=== PATIENT | male | born 1960 | race Caucasian/White ===

== ENCOUNTER → 2017-01-25 | Outpatient (CLI) | payer BC ==
[2017-01-25 10:55] LABS: Basophils % (A) 1 %; CH 34.2; CHCM 33.8; Eosinophils # (A) 0.3 k/uL (0-0.7); Eosinophils % (A) 4 %; HCT 45.3 % (39.0-53.0); HDW 2.85; HGB 14.8 gm/dL (13.0-17.5); Luc % (Auto) 3; Lymphocytes # (A) 1.3 k/uL (1.0-4.8); Lymphocytes % (A) 22 %; MCH 33.2 pg (25.0-35.0); MCHC 32.7 g/dL (31.0-37.0); MCV 101.7 fL (80.0-100.0); Macrocytosis Slight; Mean Platelet Volume 7.1; Monocytes # (A) 0.4 k/uL (0-1.0); Monocytes % (A) 7 %; Neutrophils # (A) 3.8 k/uL (1.3-7.7); Neutrophils % (A) 63 %; RBC 4.45 m/uL (4.30-5.90); RDW 12.8 % (11.5-15.5); WBC 6.1 k/uL (3.8-10.6); WBC (Perox) 5.85
[2017-01-25 11:02] LABS: ALT 45 U/L (21-72); AST 63 U/L (17-59)
== END | disposition home or self-care (01) ==
LOC: LABWHC1 09:38
PROVIDERS: ATTEND Dermatology Procedural Dermatology
DX: L40.0 Psoriasis vulgaris (principal)
CPT/HCPCS: 36415; 84450; 84460; 85025; 86480

== ENCOUNTER → 2018-02-20 | Outpatient (CLI) | payer BC ==
[2018-02-20 11:55] LABS: Basophils # (A) 0.1 k/uL (0-0.2); Basophils % (A) 1 %; Eosinophils # (A) 0.3 k/uL (0-0.7); Eosinophils % (A) 5 %; HCT 46.9 % (39.0-53.0); HGB 15.9 gm/dL (13.0-17.5); Lymphocytes # (A) 1.3 k/uL (1.0-4.8); Lymphocytes % (A) 27 %; MCH 33.7 pg (25.0-35.0); MCHC 33.9 g/dL (31.0-37.0); MCV 99.2 fL (80.0-100.0); Monocytes # (A) 0.5 k/uL (0-1.0); Monocytes % (A) 10 %; Neutrophils # (A) 2.7 k/uL (1.3-7.7); Neutrophils % (A) 53 %; Platelet Count 152 k/uL (150-450); RBC 4.73 m/uL (4.30-5.90); RDW 12.6 % (11.5-15.5)
== END | disposition home or self-care (01) ==
LOC: LABWHC1 10:12
PROVIDERS: ATTEND Dermatology Procedural Dermatology
DX: L40.0 Psoriasis vulgaris (principal)
CPT/HCPCS: 36415; 82565; 84450; 84460; 85025; 86480

== ENCOUNTER → 2018-06-08 | Outpatient (CLI) | payer BC ==
--- NOTE | 2018-06-08 12:33 | CT ---
EXAMINATION TYPE: CT chest w con DATE OF EXAM: 06/08/2018 COMPARISON: Chest x-ray 10/30/2009 HISTORY: Pneumonia CT DLP: 426 mGycm Automated exposure control for dose reduction was used. CONTRAST: CT scan of the chest is performed with IV Contrast, patient injected with 100 mL of Isovue 300. FINDINGS: LUNGS: There is pleural-based thickening and interlobular septal thickening suggest chronic interstit ial lung disease. Findings are particularly noted involving the lung bases. No consolidative pneumoni a. No pleural effusion or pneumothorax. MEDIASTINUM: There is lymphadenopathy in the mediastinum noted with a couple lordosis measuring patho logic in short axis of 1.1 cm. Findings are nonspecific. Thyroid enhances normally. No axillary or araujo praclavicular adenopathy. Aorta of normal caliber. Coronary artery calcification noted. OTHER: Hypertrophic and degenerative change of the spine noted. IMPRESSION: 1. No evidence of consolidative pneumonia. 2. Cortical findings are compatible with chronic interstitial lung disease correlate for pulmonary fi brosis. 3. Nonspecific borderline adenopathy within the mediastinum or for coronary artery calcification
== END ==
LOC: RADCTMAIN 10:13
PROVIDERS: ATTEND Family Medicine
DX: R91.8 Other nonspecific abnormal finding of lung field (principal)
CPT/HCPCS: 71260; Q9967

== ENCOUNTER 2018-07-04 11:08 | Day surgery (SDC) | payer BC ==
[2018-07-02 13:11] VITALS: BMI 25.0
[~2018-07-04 11:08] MED LIST: ALBUTEROL NEB (CONC) 2.5 MG/0.5 ML INHALATION ONE; LACTATED RINGERS 1,000 ML IV SCH; LIDOCAINE 1% 20 ML VIAL (10MG/ML) FOR IV START INTRADERMA PRN; LIDOCAINE 2% (PF) 20 MG/ML 5 ML VIAL INHALATION ONE; LIDOCAINE VISCOUS 300 MG/15 ML CUP MUCOUS MEM ONE; SODIUM CHLORIDE 0.9% 1,000 ML IV SCH
[2018-07-04 11:29] VITALS: RESP 16; TEMP 97.4
[2018-07-04 11:47] LABS: Glucose,Whole Blood 106 mg/dL (75-99)
[2018-07-04] MEDS ORDERED: PROPOFOL 10 MG/ML 20 ML VIAL IV ONE (12:41)
[2018-07-04] MEDS ORDERED: LIDOCAINE 2% (PF) 20 MG/ML 2 ML VIAL INHALATION ONE (12:53)
[2018-07-04 13:37] VITALS: BP 130/93; PULSE 72
--- NOTE | 2018-07-04 13:45 | PCN ---
PROCEDURE NOTE The operative report is bronchoscopy, transbronchial biopsies of the left lower lobe under fluoroscopy guidance. PREOPERATIVE DIAGNOSIS: Interstitial lung disease. POSTOPERATIVE DIAGNOSIS: Interstitial lung disease. ANESTHESIA USED: IV conscious sedation. PROCEDURE: The patient was prepared according to the bronchoscopy protocol. O2 was applied via nasal cannula. We monitored the patient while in the supine position, his O2 saturation was continuously monitored via pulse oximetry. Blood pressure was intermittently monitored and cardiac rhythm was continuously monitored. After adequate IV conscious sedation, a few milliliters of lidocaine were instilled into the right naris, and the bronchoscope was advanced through the right naris down to the area of the vocal cords, which were noted to be patent. Then the bronchoscope was advanced down through the vocal cords. A thorough examination was done of the trachea, richelle, right upper lobe, right middle lobe, left upper lobe, lingula, and left lower lobe. There was no evidence of any endobronchial tumors. There was no evidence of any purulent secretions. Then using fluoroscopy as guidance, multiple transbronchial biopsies were done from different basilar segments of the left lower lobe. A total of 7 transbronchial biopsies were done from the left lower lobe, and these were sent for different diagnostic studies. Lavage from the left lower lobe was also performed and was sent for different diagnostic studies. Procedure was well tolerated, no evidence of any immediate complications. Chest x-ray was ordered postoperatively and it is pending. MMODL / IJN: [id number] /
--- NOTE | 2018-07-04 13:47 | XR ---
EXAMINATION TYPE: XR chest 1V portable DATE OF EXAM: 07/04/2018 Comparison: 06/29/2018 Clinical History: 57-year-old male Post biopsy LLL Findings: Heart normal size. Focal bibasilar opacities are unchanged. Upper and mid lungs appear relatively andrew ar. Impression: Persistent focal bibasilar opacities suggesting underlying interstitial fibrosis, possible NSIP or ea rly UIP. No appreciable pneumothorax.
--- NOTE | 2018-07-04 13:52 | FL ---
EXAMINATION TYPE: FL bronchoscopy DATE OF EXAM: 07/04/2018 COMPARISON: NONE HISTORY: 57 year-old male left lower lobe biopsy TECHNIQUE: Fluoroscopy. FINDINGS: Fluoroscopic guidance was provided during procedure performed by Dr. Castro. A total of 1 3 seconds of fluoroscopic time was utilized during the procedure and 1 spot images was acquired. IMPRESSION: As Above.
== END 2018-07-04 13:58 | disposition home or self-care (01) ==
LOC: ORWHC2ENDO 11:08
PROVIDERS: ATTEND Internal Medicine
DX: J84.10 Pulmonary fibrosis, unspecified (principal); M10.9 Gout, unspecified; L40.50 Arthropathic psoriasis, unspecified; I10 Essential (primary) hypertension; L40.9 Psoriasis, unspecified; F32.9 Major depressive disorder, single episode, unspecified; K21.9 Gastro-esophageal reflux disease without esophagitis; M19.90 Unspecified osteoarthritis, unspecified site; Z82.49 Family history of ischemic heart disease and other diseases of the circulatory system; Z86.73 Personal history of transient ischemic attack (TIA), and cerebral infarction without residual deficits; Z79.52 Long term (current) use of systemic steroids; Z79.899 Other long term (current) drug therapy
CPT/HCPCS: 94640; 87252; 87070; 87205; 87116; 87102; 87206; 71045; 31628; 31624; J2704; J2001 ×2; 88108; 88305

== ENCOUNTER → 2018-08-02 | Outpatient (CLI) | payer BC ==
[2018-08-02 14:26] LABS: Basophils % (A) 0 %; Eosinophils # (A) 0.1 k/uL (0-0.7); Eosinophils % (A) 1 %; HCT 46.3 % (39.0-53.0); HGB 15.1 gm/dL (13.0-17.5); Lymphocytes # (A) 0.6 k/uL (1.0-4.8); Lymphocytes % (A) 8 %; MCH 31.3 pg (25.0-35.0); MCHC 32.6 g/dL (31.0-37.0); Mean Platelet Volume 6.8; Monocytes # (A) 0.2 k/uL (0-1.0); Monocytes % (A) 2 %; Neutrophils # (A) 6.6 k/uL (1.3-7.7); Neutrophils % (A) 88 %; Platelet Count 154 k/uL (150-450); RBC 4.83 m/uL (4.30-5.90); WBC 7.5 k/uL (3.8-10.6)
[2018-08-02 15:33] LABS: Anion Gap 6 mmol/L; Blood Urea Nitrogen 13 mg/dL (9-20); Carbon Dioxide 32 mmol/L (22-30); Chloride 101 mmol/L (98-107); Potassium 4.9 mmol/L (3.5-5.1); Sodium 139 mmol/L (137-145)
== END ==
LOC: LABPAT 13:59
PROVIDERS: ATTEND Family Medicine
DX: Z01.818 Encounter for other preprocedural examination (principal); Z01.812 Encounter for preprocedural laboratory examination
CPT/HCPCS: 36415; 80051; 82565; 84520; 85025; 93005

== ENCOUNTER 2018-08-09 08:13 | Inpatient (IN) | payer BC, MEDICARE ==
[2018-08-07 12:18] VITALS: BMI 25.5
[~2018-08-09 08:13] MED LIST changes: -ALBUTEROL NEB (CONC) 2.5 MG/0.5 ML INHALATION ONE; +DEXAMETHASONE SOD PHOSPHATE 10 MG/ML 1 ML VIAL IV ONE; +HYDROmorphone 0.5 MG/0.5 ML SYRINGE IVP PRN; -LIDOCAINE 2% (PF) 20 MG/ML 5 ML VIAL INHALATION ONE; -LIDOCAINE VISCOUS 300 MG/15 ML CUP MUCOUS MEM ONE; +ONDANSETRON 4 MG/2 ML VIAL IVP ONE; +SCOPOLAMINE 1.5MG/72HR PATCH TRANSDERM ONE; -SODIUM CHLORIDE 0.9% 1,000 ML IV SCH; +ceFAZolin IN SWFI 2 GM/20 ML SYRINGE IVP ONE
[2018-08-09] MEDS ORDERED: NEOSTIGMINE 1 MG/ML 10 ML VIAL ONE (12:29)
[2018-08-09] MEDS ORDERED: HYDROmorphone (PF) 1 MG/ML ONE (12:29)
[2018-08-09] MEDS ORDERED: GLYCOPYRROLATE 0.2 MG/ML 2 ML VIAL ONE (12:29)
[2018-08-09] MEDS ORDERED: BUPIVACAINE (PF) 0.5% 30 ML VIAL SQ ONE (12:29)
[2018-08-09] MEDS ORDERED: PROPOFOL 10 MG/ML 20 ML VIAL IV ONE (12:29)
[2018-08-09] MEDS ORDERED: LIDOCAINE 1% INJ 10MG/ML (20 ML MDV) ONE (12:29)
[2018-08-09] MEDS ORDERED: MIDAZOLAM 2 MG/2 ML VIAL ONE (12:29)
[2018-08-09] MEDS ORDERED: fentaNYL (PF) 50 MCG/ML 2 ML AMP ONE (12:29)
[2018-08-09] MEDS ORDERED: SUCCINYLCHOLINE CHLORIDE 100 MG/5 ML SYR IV ONE (12:29)
[2018-08-09] MEDS ORDERED: ROCURONIUM BROMIDE 10 MG/ML 10 ML VIAL IV ONE (12:29)
[2018-08-09] MEDS ORDERED: ASPIRIN-ACET-CAFF 250-250-65MG 1 EACH TAB PO PRN (13:50)
[2018-08-09] MEDS ORDERED: BISACODYL 10 MG SUPP RECTAL PRN (13:50)
[2018-08-09] MEDS ORDERED: IPRATROPIUM-ALBUTEROL 3 ML NEB IH PRN (13:50)
[2018-08-09] MEDS ORDERED: ONDANSETRON 4 MG/2 ML VIAL IVP PRN (13:50)
[2018-08-09] MEDS ORDERED: HYDROmorphone 1 MG/ML 1 ML SYRINGE IVP ONE (14:08)
--- NOTE | 2018-08-09 14:12 | XR ---
EXAMINATION TYPE: XR chest 1V DATE OF EXAM: 08/09/2018 COMPARISON: 07/04/2018 HISTORY: Status post VATS. TECHNIQUE: Single frontal view of the chest is obtained. FINDINGS: Mediastinal drain is present. Subcutaneous emphysema is seen along the left chest wall. No pneumothorax is seen. Multifocal atelectasis is present in addition to chronic interstitial prominen ce and suspected background interstitial lung disease. Cardia mediastinal silhouette is within normal limits, upper limits of normal. No new focal consolidation or pleural effusion. IMPRESSION: Status post VATS with multifocal atelectasis, mediastinal drain and subcutaneous emphyse
[2018-08-09] MEDS ORDERED: DEXTROSE 5%-0.45% NACL 1,000 ML IV SCH (15:00)
[2018-08-09] MEDS: KETOROLAC 30 MG/ML 1 ML VIAL IVP SCH ×3 (16:02→23:28)
[2018-08-09] MEDS: HEPARIN SODIUM,PORCINE 5,000 UNIT/ML 1 ML VIAL SQ SCH ×2 (16:04→23:28)
[2018-08-09] MEDS: IPRATROPIUM-ALBUTEROL 3 ML NEB IH SCH ×2 (16:44→21:03)
[2018-08-09 16:48] VITALS: RESP 18
--- NOTE | 2018-08-09 17:07 | P.OP ---
Date of Procedure: 08/09/18 Preoperative Diagnosis: Bilateral pulmonary infiltrate Postoperative Diagnosis: Same with Procedure(s) Performed: Left thoracoscopic biopsy of pulmonary infiltrates Anesthesia: JOAQIUM Surgeon: Leighton Zamorano Filter Press Tender Head #1: Kamaljit Bear Estimated Blood Loss (ml): 20 IV fluids (ml): 1,000 Urine output (ml): 0 Pathology: other (Wedge resections of lingula, lower lobe and upper lobe are sent for pathology and culture including routine, AFB and fungus) Condition: stable Disposition: PACU Indications for Procedure: 57-year-old male with progressive cough and dyspnea. Significant bilateral predominantly lower lobe patchy infiltrates consistent with progressive pulmonary fibrosis. Operative Findings: The lung had some anthracotic change particularly in the lower lobes associated with some fibrosis Description of Procedure: The patient was brought to the operating room, placed supine on the operating table, anesthetized and intubated with a double-lumen endotracheal tube. The airway was small and difficult to visualize and a 35 mm tube was required. Tube was positioned with fiberoptic bronchoscopy and secured. The patient was turned in the right lateral decubitus position. The left chest was sterilely prepped and draped. 3 one-inch incisions were made in the left chest and the video thoracoscope was introduced. Under single lung ventilation the chest was explored with findings as noted above. Generous wedge biopsies of the lingula and basilar portion of the lower lobe were obtained. Another biopsy of the upper lobe from the more superior area was also obtained for comparison. Each biopsy was cut on the back table and a portion sent for culture and the remainder for pathology. A 28-Dutch chest tube was placed through separate stab incision and positioned posterior apically. Secured with 0 Ethibond suture. The lung was inflated under thoracoscopic visualization and the incisions were closed with layers of Vicryl suture. Rib blocks were performed with half percent Marcaine at the level of the incisions. Dry sterile dressings were applied and the patient was transferred to recovery in stable condition extubated.
--- NOTE | 2018-08-09 18:14 | P.CNPUL ---
History of Present Illness Consult date: 08/09/18 Chief complaint: Post thoracoscopic wedge biopsy of the lung History of present illness: This is a 57-year-old male patient with obvious interstitial lung disease/pulmonary fibrosis and the patient was brought into the operating room to undergo a left thoracoscopic biopsy of the lung. The patient had a wedge resection of the lingula and lower lobe and upper lobe and the wedge resections were sent to pathology evaluation addition to microbial cultures. Note that the patient was having some exertional dyspnea preoperatively related to his interstitial lung disease and he has been followed up in our office. Currently the chest x-ray showing adequate expansion of both lungs. There is a left-sided chest tube in place. Output has been around 90 mL of bloody drainage since the patient came from the operating room and there is no evidence of any air leak. Pain is under good control. The patient is hemodynamically stable and is awake and alert and there has been no other significant events since his arrival from the operating room. Note that the patient has history of psoriasis and psoriatic arthritis and he has been maintained on Enbrel injection outpatient basis. His arthritis has been under good control. Review of Systems Constitutional: Denies chills, Denies fever Eyes: denies as per HPI, denies blurred vision, denies bulging eye, denies decreased vision, denies diplopia, denies discharge, denies dry eye, denies irritation, denies itching, denies pain, denies photophobia, denies loss of peripheral vision, denies loss of vision, denies tunnel vision/blind spots Ears: deny: decreased hearing, ear discharge, earache, tinnitus Ears, nose, mouth and throat: Denies headache, Denies sore throat Breasts: absent: as per HPI, gynecomastia Cardiovascular: Reports decreased exercise tolerance, Reports dyspnea on exertion Respiratory: Reports dyspnea Gastrointestinal: Denies abdominal pain, Denies diarrhea, Denies nausea, Denies vomiting Genitourinary: Reports as per HPI Musculoskeletal: absent: ankle pain, ankle stiffness, ankle swelling, as per HPI, elbow pain, elbow stiffness, elbow swelling, foot pain, foot stiffness, foot swelling, hand pain, hand stiffness, hand swelling, hip pain, hip stiffness, hip swelling, knee pain, knee stiffness, knee swelling, shoulder pain, shoulder stiffness, shoulder swelling, wrist pain, wrist stiffness, wrist swelling Integumentary: Denies pruritus, Denies rash Neurological: Reports as per HPI Psychiatric: Reports as per HPI Endocrine: Reports as per HPI Hematologic/Lymphatic: Reports as per HPI Allergic/Immunologic: Reports as per HPI Past Medical History Past Medical History: CVA/TIA, Eye Disorder, GERD/Reflux, Hypertension, Osteoarthritis (OA), Respiratory Disorder, Skin Disorder Additional Past Medical History / Comment(s): Interstitial lung disease/pulmonary fibrosis, psoriasis, psoriatic arthritis, gout, glaucoma, history of TIA, hypertension, acid reflux, osteoarthritis History of Any Multi-Drug Resistant Organisms: None Reported Past Surgical History: Hernia Repair Additional Past Surgical History / Comment(s): RT HAND TENDON SURG. UMB HERNIA. COLONOSCOPY, EGD, bronchoscopy end of June 2018 , vasectomy Past Anesthesia/Blood Transfusion Reactions: No Reported Reaction Past Psychological History: No Psychological Hx Reported Smoking Status: Never smoker Past Alcohol Use History: Occasional Past Drug Use History: None Reported - Past Family History Father Family Medical History: Cancer, Myocardial Infarction ([place]) Medications and Allergies Home Medications Medication Instructions Recorded Confirmed Type Albuterol Inhaler [Ventolin Hfa 1 - 2 puff INHALATION RT-Q6H PRN 07/02/18 08/09/18 History Inhaler] Allopurinol [Zyloprim] 300 mg PO DAILY 07/02/18 08/09/18 History Aspirin/Acetaminophen/Caffeine 1 tab PO Q6H PRN 07/02/18 08/09/18 History [Excedrin Extra Strength Caplet] Losartan [Cozaar] 25 mg PO DAILY 07/02/18 08/09/18 History Pantoprazole Sodium [Protonix] 40 mg PO DAILY 07/02/18 08/09/18 History Travoprost [Travatan Z 0.004%] 2 drop LEFT EYE HS 07/02/18 08/09/18 History Allergies Allergy/AdvReac Type Severity Reaction Status Date / Time No Known Allergies Allergy Verified 08/09/18 15:20 Physical Exam Vitals: Vital Signs Temp Pulse Pulse Resp BP BP Pulse Ox 08/09/18 16:54 114 H 18 08/09/18 16:44 111 H 18 98 08/09/18 15:40 98.2 F 114 H 20 132/77 08/09/18 15:15 101 H 16 118/71 95 08/09/18 14:38 97 16 99/60 93 L 08/09/18 14:15 92 16 110/56 97 08/09/18 13:45 91 14 121/64 95 08/09/18 13:37 97.4 F L 111 H 16 144/78 100 08/09/18 08:39 97.6 F 83 16 156/63 98 Intake and Output 08/09/18 08/09/18 08/09/18 06:59 14:59 22:59 Intake Total 1230 120 Output Total 20 145 Balance 1210 -25 Intake: IV 1000 Intake, IV Titration 80 Amount Dextrose 5%-0.45% NaCl 1, 80 000 ml @ 40 mls/hr IV . Q24H [facility] Rx#:[id number] Oral 150 120 Output: Chest Tube Drainage 80 Chest Tube Left Lateral 80 Chest Estimated Blood Loss 20 65 The patient appeared well nourished and normally developed. Vital signs as documented. Head exam is unremarkable. No scleral icterus or corneal arcus noted. Neck is without jugular venous distension, thyromegaly, or carotid bruits. Carotid upstrokes are brisk bilaterally. Lungs few coarse crackles in lung bases bilaterally and the patient is Velcro crackles in the lung bases. The patient has a left-sided chest tube in place. Output is minimal at this point in time and there is no evidence of air leak.. Cardiac exam reveals the PMI to be normally sized and situated. Rhythm is regular. First and second heart sounds normal. No murmurs, rubs or gallops. Abdominal exam reveals normal bowel sounds, no masses, no organomegaly and no aortic enlargement. Extremities are nonedematous and both femoral and pedal pulses are normal.Examination of the skin revealed no evidence of significant rashes, suspicious appearing nevi or other concerning lesions. Neurologically the patient is awake and alert and is no focal neurological deficits. Results - Diagnostic Findings Chest x-ray: image reviewed Assessment and Plan Plan: Assessment 1 interstitial lung disease with the high concern and suspicion for IPF and the patient underwent a thoracoscopic wedge biopsy of the left lung and the patient is postop day #0 2 post surgical left-sided chest tube in place without evidence of air leak and output is minimal at this point in time 3 chronic exertional dyspnea secondary to above 4 psoriasis 5 psoriatic arthritis and the patient is demented on Enbrel injection an outpatient basis 6 hypertension 7 osteoarthritis 8 acid reflux 9 chronic cough Plan Provide the patient incentive spirometer. Monitor the output from the chest tube. Repeat chest x-ray in the morning. Provide adequate pain control. Continue DuoNeb nebulized treatments around the clock. IV As an [employer] Antibiotic Coverage. Heparin Subcu for DVT Prophylaxis. Hold Enbrel for Now. Resume the Eyedrops. We'll Continue to Follow and Make Further Recommendations Based on His Overall Progress.
[2018-08-09] MEDS ORDERED: LATANOPROST 0.005% OPHTH DROPS 2.5 ML BTL LEFT EYE SCH (21:00)
[2018-08-09] MEDS: ceFAZolin IN SWFI 2 GM/20 ML SYRINGE IVP SCH (21:03)
[2018-08-10] MEDS: ceFAZolin IN SWFI 2 GM/20 ML SYRINGE IVP SCH (05:12)
[2018-08-10] MEDS: KETOROLAC 30 MG/ML 1 ML VIAL IVP SCH ×2 (05:13→12:28)
--- NOTE | 2018-08-10 07:12 | XR ---
EXAMINATION TYPE: XR chest 1V DATE OF EXAM: 08/10/2018 HISTORY: Postoperative left VATS with lung biopsy COMPARISON: August 09, 2018 TECHNIQUE: Single view of the chest is submitted. FINDINGS: Demonstrated are scattered senescent parenchymal change. Basilar atelectasis and/or infiltrates persist. Small effusions are suspected. No evidence for pneumo thorax. Left-sided chest tube is in place. The heart is stable. Hilar and mediastinal structures are within normal limits. Degenerative changes are seen of the dorsal spine. IMPRESSION: 1. Basilar atelectasis and/or infiltrates persist. Small effusions are suspected. No evidence for pn eumothorax. Left-sided chest tube is in place.
[2018-08-10] MEDS ORDERED: PANTOPRAZOLE 40 MG TABLET PO SCH (07:30)
[2018-08-10] MEDS: IPRATROPIUM-ALBUTEROL 3 ML NEB IH SCH ×2 (07:42→11:20)
[2018-08-10 07:51] LABS: Basophils % (A) 0 %; Eosinophils # (A) 0.1 k/uL (0-0.7); Eosinophils % (A) 2 %; HCT 37.2 % (39.0-53.0); HGB 12.6 gm/dL (13.0-17.5); Lymphocytes % (A) 15 %; MCH 32.4 pg (25.0-35.0); MCHC 33.8 g/dL (31.0-37.0); MCV 95.8 fL (80.0-100.0); Mean Platelet Volume 7.6; Monocytes # (A) 0.4 k/uL (0-1.0); Monocytes % (A) 6 %; Neutrophils % (A) 76 %; Platelet Count 135 k/uL (150-450); RBC 3.88 m/uL (4.30-5.90); RDW 15.1 % (11.5-15.5); WBC 6.6 k/uL (3.8-10.6)
[2018-08-10 07:52] LABS: Anion Gap 3 mmol/L; Blood Urea Nitrogen 10 mg/dL (9-20); Calcium 8.6 mg/dL (8.4-10.2); Carbon Dioxide 31 mmol/L (22-30); Chloride 101 mmol/L (98-107); Glucose 110 mg/dL (74-99); Potassium 4.2 mmol/L (3.5-5.1); Sodium 135 mmol/L (137-145)
[2018-08-10] MEDS: HEPARIN SODIUM,PORCINE 5,000 UNIT/ML 1 ML VIAL SQ SCH (08:43)
[2018-08-10] MEDS ORDERED: ALLOPURINOL 300 MG TAB PO SCH (09:00)
[2018-08-10] MEDS ORDERED: LOSARTAN 25 MG TAB PO SCH (09:00)
--- NOTE | 2018-08-10 12:54 | XR ---
EXAMINATION TYPE: XR chest 2V DATE OF EXAM: 08/10/2018 COMPARISON: 08/10/2018 HISTORY: Chest tube removal TECHNIQUE: Frontal and lateral views of the chest are obtained. FINDINGS: Scattered senescent parenchymal changes noted. Hyperinflation compatible with COPD. Left-sided chest tube has been removed with small left apical pneumothorax estimated at less than 10% and measuring 1 cm. Left basilar pleural-parenchymal opacity persists. Heart size is stable. Mediastinal structures are stable and grossly unremarkable. No evidence for hilar prominence. Degenerative changes dorsal spine. IMPRESSION: 1. Left-sided chest tube has been removed with small left apical pneumothorax estimated at less than 10% and measuring 1 cm.
[2018-08-10 14:04] VITALS: BP 132/73; PULSE 111; TEMP 98.4
--- NOTE | 2018-08-10 17:12 | P.PN ---
Subjective Progress Note Date: 08/10/18 Principal diagnosis: Post thoracoscopic wedge lung biopsy This is a 57-year-old male patient with obvious interstitial lung disease/pulmonary fibrosis and the patient was brought into the operating room to undergo a left thoracoscopic biopsy of the lung. The patient had a wedge resection of the lingula and lower lobe and upper lobe and the wedge resections were sent to pathology evaluation addition to microbial cultures. Note that the patient was having some exertional dyspnea preoperatively related to his interstitial lung disease and he has been followed up in our office. Currently the chest x-ray showing adequate expansion of both lungs. There is a left-sided chest tube in place. Output has been around 90 mL of bloody drainage since the patient came from the operating room and there is no evidence of any air leak. Pain is under good control. The patient is hemodynamically stable and is awake and alert and there has been no other significant events since his arrival from the operating room. Note that the patient has history of psoriasis and psoriatic arthritis and he has been maintained on Enbrel injection outpatient basis. His arthritis has been under good control. The patient is seen today 08/10/2018 in follow-up on the selective care unit. He is awake and alert in no acute distress. He is maintaining good O2 saturations in the 90s on room air. He's been afebrile. Hemodynamically stable. He is working well with the incentive spirometer. His pain is well controlled. Chest tube was removed. Follow-up chest x-ray reviewed. He is planning to be discharged home today. Cultures and pathology are pending. White count 6.6. Hemoglobin 12.6. Creatinine 0.69. Objective - Vital Signs Vital signs: Vital Signs Temp 98.4 F 08/10/18 12:05 Pulse 111 H 08/10/18 12:05 Resp 18 08/10/18 12:05 BP 132/73 08/10/18 12:05 Pulse Ox 94 L 08/10/18 12:05 Intake & Output 08/09/18 08/10/18 08/10/18 18:59 06:59 18:59 Intake Total 1950 720 Output Total 765 380 Balance 1185 -380 720 Weight 76.1 kg Intake: IV 1000 Intake, IV Titration 80 Amount Dextrose 5%-0.45% NaCl 1, 80 000 ml @ 40 mls/hr IV . Q24H [facility] Rx#:[id number] Oral 870 130 Output: Chest Tube Drainage 80 80 Chest Tube Left Lateral 80 80 Chest Urine 600 300 Estimated Blood Loss 85 Other: # Voids 1 - Exam The patient appeared well nourished and normally developed. Vital signs as documented. Head exam is unremarkable. No scleral icterus or corneal arcus noted. Neck is without jugular venous distension, thyromegaly, or carotid bruits. Carotid upstrokes are brisk bilaterally. Lungs few coarse crackles in lung bases bilaterally and the patient is Velcro crackles in the lung bases. Chest tube has been removed. Output is minimal at this point in time and there is no evidence of air leak. Cardiac exam reveals the PMI to be normally sized and situated. Rhythm is regular. First and second heart sounds normal. No murmurs, rubs or gallops. Abdominal exam reveals normal bowel sounds, no masses, no organomegaly and no aortic enlargement. Extremities are nonedematous and both femoral and pedal pulses are normal.Examination of the skin revealed no evidence of significant rashes, suspicious appearing nevi or other concerning lesions. Neurologically the patient is awake and alert and is no focal neurological deficits. - Labs CBC & Chem 7: 08/10/18 06:41 08/10/18 06:41 Labs: Abnormal Lab Results - Last 24 Hours (Table) 08/10/18 08/10/18 Range/Units 06:41 06:41 RBC 3.88 L (4.30-5.90) m/uL Hgb 12.6 L (13.0-17.5) gm/dL Hct 37.2 L (39.0-53.0) % Plt Count 135 L (150-450) k/uL Sodium 135 L (137-145) mmol/L Carbon Dioxide 31 H (22-30) mmol/L Glucose 110 H (74-99) mg/dL Microbiology - Last 24 Hours (Table) 08/09/18 13:21 Gram Stain - Preliminary Lung - Left Lower Lobe Tissue Culture - Preliminary 08/09/18 13:21 Gram Stain - Preliminary Lung - Left Upper Lobe Tissue Culture - Preliminary 08/09/18 13:21 Gram Stain - Preliminary Lung - Left Upper Lobe Tissue Culture - Preliminary 08/09/18 13:21 Acid Fast Bacilli Smear - Final Lung - Left Upper Lobe Acid Fast Bacilli Culture - Preliminary 08/09/18 13:21 Acid Fast Bacilli Smear - Final Lung - Left Lower Lobe Acid Fast Bacilli Culture - Preliminary 08/09/18 13:21 Acid Fast Bacilli Smear - Final Lung - Left Upper Lobe Acid Fast Bacilli Culture - Preliminary 08/09/18 13:21 Anaerobic Culture - Preliminary Lung - Left Lower Lobe 08/09/18 13:21 Fungal Culture - Preliminary Lung - Left Upper Lobe 08/09/18 13:21 Anaerobic Culture - Preliminary Lung - Left Upper Lobe 08/09/18 13:21 Fungal Culture - Preliminary Lung - Left Lower Lobe 08/09/18 13:21 Anaerobic Culture - Preliminary Lung - Left Upper Lobe 08/09/18 13:21 Fungal Culture - Preliminary Lung - Left Upper Lobe Assessment and Plan Assessment: Assessment 1 interstitial lung disease with the high concern and suspicion for IPF and the patient underwent a thoracoscopic wedge biopsy of the left lung and the patient is postop day #1 2 post surgical left-sided chest tube in place without evidence of air leak and output is minimal at this point in time 3 chronic exertional dyspnea secondary to above 4 psoriasis 5 psoriatic arthritis and the patient is demented on Enbrel injection an outpatient basis 6 hypertension 7 osteoarthritis 8 acid reflux 9 chronic cough Plan The patient was seen and evaluated by Dr. Johansen. Chest x-rays were reviewed. He is cleared for discharge from the pulmonary standpoint. He'll follow up with Dr. Castro in our office. He is encouraged to call sooner with any questions or concerns. I, the cosigning physician, performed a history & physical examination of the patient. Lungs sounds with coarse crackles in the bilateral bases. Maintaining good O2 saturations in the 90s on room air. I discussed the assessment and plan of care with my nurse practitioner, Brenda Arroyo. I attest to the above note as di ctated by her.
--- NOTE | 2018-08-11 14:04 | P.DS ---
Providers Date of admission: 08/09/18 08:13 Expected date of discharge: 08/10/18 Attending physician: Leighton Zamorano Consults: 08/09/18 13:50 Consult Physician Routine Consulting Provider: Lorna Castro Reason/Comments: Pulmonary Management Do you want consulting provider notified?: Yes Primary care physician: [facility] Course: FINAL DIAGNOSIS: 1. Bilateral pulmonary infiltrates 2. Psoriasis and psoriatic arthritis, suspected rheumatoid arthritis, on Enbrel for several years 3. Hypertension 4. CVA 5. CAD 6. Daily EtOH 7. Family history of premature coronary artery disease and cancer PRINCIPAL PROCEDURE: 1. Left thoracoscopic biopsy of pulmonary infiltrates HISTORY OF PRESENT ILLNESS: This is a 57-year-old active gentleman who follows with Dr. Chente Moore on an outpatient basis. Over the previous 6 months he noticed increasing shortness of breath and a dry hacking cough without any fever, chills, hemoptysis, or chest pain. His primary care physician was concerned that the symptoms were due to his Enbrel and it was discontinued. Unfortunately this caused his psoriasis to flareup and really did not improve h is pulmonary symptomatology. He was referred to Dr. Castro who did a diagnostic computed tomography scan which demonstrated evidence of bilateral pulmonary fibrosis and groundglass infiltrates, worse in the lower lobes than the upper lobes and more pronounced on the left than the right. Diagnostic bronchoscopy was performed which was nondiagnostic. The patient was referred to Dr. Zamorano from cardiothoracic surgery. He was recommended to undergo thoracoscopic lung biopsy. The usual perioperative course was discussed in detail with the patient and his family, all risks and benefits were explained, all questions were answered, and consent was obtained to proceed with surgery. The patient was scheduled at the earliest possible surgical date. HOSPITAL COURSE: The patient was brought to the hospital on 08/09/2018, taken to the preoperative area, prepared in the usual fashion, and subsequently taken to the operating room where Dr. Zamorano performed a left thoracoscopic biopsy of pulmonary infiltrates. Upon completion of surgery the patient was extubated and taken to the recovery room for continued monitoring. Eventually he was admitted to [address] [place] [address] cardiac step-down unit, there was no air leak in his chest tube and it was to placed to water-seal the night of surgery. Follow-up chest x-ray the next morning was stable, the patient continued to have no air leak, and his left pleural chest tube was discontinued on postop day #1. His oxygen was titrated down, he was tolerating oral diet, his pain was controlled, and he was ready to be discharged to home on postoperative day #1. He received written and verbal instruction regarding his medications, activity restrictions, signs and symptoms requiring physician notification, and follow-up appointments. COMPLICATIONS: The patient experienced no postoperative complications. Patient Condition at Discharge: Stable Plan - Discharge Summary Discharge Rx Participant: Yes New Discharge Prescriptions: Continue Albuterol Inhaler [Ventolin Hfa Inhaler] 1 - 2 puff INHALATION RT-Q6H PRN PRN Reason: Shortness Of Breath Travoprost [Travatan Z 0.004%] 2 drop LEFT EYE HS Pantoprazole Sodium [Protonix] 40 mg PO DAILY Losartan [Cozaar] 25 mg PO DAILY Allopurinol [Zyloprim] 300 mg PO DAILY Aspirin/Acetaminophen/Caffeine [Excedrin Extra Strength Caplet] 1 tab PO Q6H PRN PRN Reason: Pain Discharge Medication List Albuterol Inhaler [Ventolin Hfa Inhaler] 1 - 2 puff INHALATION RT-Q6H PRN 07/02/18 [History] Allopurinol [Zyloprim] 300 mg PO DAILY 07/02/18 [History] Aspirin/Acetaminophen/Caffeine [Excedrin Extra Strength Caplet] 1 tab PO Q6H PRN 07/02/18 [History] Losartan [Cozaar] 25 mg PO DAILY 07/02/18 [History] Pantoprazole Sodium [Protonix] 40 mg PO DAILY 07/02/18 [History] Travoprost [Travatan Z 0.004%] 2 drop LEFT EYE HS 07/02/18 [History] Follow up Appointment(s)/Referral(s): Brenda Arroyo NPC [Nurse Practitioner] - 08/22/18 3:30 pm Leighton Zamorano MD [STAFF PHYSICIAN] - 08/30/18 1:45 pm Patient Instructions/Handouts: Video Assisted Thoracoscopic Surgery (DC) Activity/Diet/Wound Care/Special Instructions: DISCHARGE INSTRUCTIONS: 1. No driving for 2 weeks, or until physician gives their ok. 2. No lifting, pushing, or pulling more than 10 pounds for 2 weeks. The physician will advise of any restriction changes. 3. Continue pain control per as needed orders. Alternate acetaminophen (Tylenol) and ibuprofen (Motrin/Advil) for pain. 4. Continue with incentive spirometry and splinting until otherwise directed by the physician. 5. Leave chest tube dressing for 48 hours. After that, remove all dressings and shower daily. 6. Routine incision care. No powders, lotions, ointments on incisions. 7. Please call surgeon/EXTERNAL RELATIONS MANAGER for temp greater than 101 F or purulent drainage from incisions. Letitia Barragan NP Discharge Disposition: HOME SELF-CARE
--- NOTE | 2018-08-13 13:20 | CDI ---
Documentation Clarification Form Date: 08/13/2018 From: Tessa Espinosa Phone: If questions call Margie Spencer @ [phone], Hours-8:30 am & 5 pm M- [place] Admit Date: 08/09/2018 8:13:00 AM Patient Name: Chente Morin Visit Number: [id number] Discharge Date: 08/10/2018 3:07:00 PM ATTENTION: The Clinical Documentation Specialists (CDI) and [facility] Coding Staff appreciate your assistance in clarifying documentation. Please respond to the clarification below the line at the bottom and electronically sign. The CDI & [facility] Coding staff will review the response and follow-up if needed. Please note: Queries are made part of the Legal Health Record. If you have any questions, please contact the author of this message via ITS. Dr. Leighton Zamorano The final diagnosis of the pathology report states: interstitial lung disease, interstitial pneumonia and concerning for usual interstitial pneumonia. Treatment: Albuterol inhaler In your professional opinion, do you agree with the pathology report specifying interstitial lung disease, interstitial pneumonia and concerning for usual interstitial pneumonia ? Yes No Other (please specify) Unable to determine yes MTDD
== END 2018-08-10 15:07 | disposition home or self-care (01) | DRG 168 ==
LOC: 2ORMAIN 08:13 → 3SCARD 14:55
PROVIDERS: ADMIT Thoracic Surgery (Cardiothoracic Vascular Surgery); ATTEND Thoracic Surgery (Cardiothoracic Vascular Surgery)
PROC: 0BBG4ZX Excision of Left Upper Lung Lobe, Percutaneous Endoscopic Approach, Diagnostic (ICD-10-PCS; 2018-08-09)
PROC: 0BBH4ZX Excision of Lung Lingula, Percutaneous Endoscopic Approach, Diagnostic (ICD-10-PCS; 2018-08-09)
PROC: 0BBJ4ZX Excision of Left Lower Lung Lobe, Percutaneous Endoscopic Approach, Diagnostic (ICD-10-PCS; principal; 2018-08-09 10:00)
DX: J84.112 Idiopathic pulmonary fibrosis (principal); L40.50 Arthropathic psoriasis, unspecified; M06.9 Rheumatoid arthritis, unspecified; I10 Essential (primary) hypertension; I25.10 Atherosclerotic heart disease of native coronary artery without angina pectoris; M19.90 Unspecified osteoarthritis, unspecified site; K21.9 Gastro-esophageal reflux disease without esophagitis; M10.9 Gout, unspecified; H40.9 Unspecified glaucoma; Z79.82 Long term (current) use of aspirin; Z79.899 Other long term (current) drug therapy; Z86.73 Personal history of transient ischemic attack (TIA), and cerebral infarction without residual deficits; Z82.49 Family history of ischemic heart disease and other diseases of the circulatory system; Z80.9 Family history of malignant neoplasm, unspecified
CPT/HCPCS: 71045; 71046; 80048; 85025; 87070; 87075; 87102; 87116; 87205; 87206; 88307; 94640; 94760

== ENCOUNTER → 2019-02-07 | Outpatient (CLI) | payer BC, MEDICARE | END | disposition home or self-care (01) | LOC: CPPFTMAIN 08:07 | PROVIDERS: ATTEND Internal Medicine | DX: I99.8 Other disorder of circulatory system (principal) | CPT/HCPCS: 94060; 94726; 94729 ==

== ENCOUNTER → 2020-09-14 | Outpatient (CLI) | payer BC ==
--- NOTE | 2020-09-15 10:01 | ECHOF ---
Referral Reason:R01.1 murmur MEASUREMENTS -------- HEIGHT: 172.7 cm WEIGHT: 83.9 kg BP: IVSd: 1.3 cm (0.6 - 1.1) LVIDd: 3.9 cm (3.9 - 5.3) LVPWd: 1.4 cm (0.6 - 1.1) IVSs: 1.6 cm LVIDs: 3.7 cm LVPWs: 1.0 cm LAESV Index (A-L): 23.01 ml/m Ao Diam: 4.5 cm (2.0 - 3.7) AV Cusp: 1.0 cm (1.5 - 2.6) MV EXCURSION: 16.312 mm (> 18.000) MV EF SLOPE: 86 mm/s (70 - 150) EPSS: 0.4 cm MV E Bandar: 0.57 m/s MV DecT: 270 ms MV A Bandar: 0.88 m/s MV E/A Ratio: 0.65 AV maxP.15 mmHg AV meanP.83 mmHg FINDINGS -------- Sinus rhythm. This was a technically good study. There is mild concentric left ventricular hypertrophy. Overall left ventricular systolic function i s low-normal with, an EF between 50 - 55 %. Left ventricular systolic function is hyperdynamic with an estimated EF of >70%. The right ventricle is normal in size. The right atrial size is normal. There is moderate aortic stenosis present. Peak/mean gradient across the Aortic Valve is 37.15mmHg / 18.83mmHg. Aortic valve is functionally bicuspid and is mildly thickened. Mild mitral annular calcification present. Mild mitral regurgitation is present. Mild tricuspid regurgitation present. Right ventricular systolic pressure is normal at < 35 mmHg. There is no pulmonic regurgitation present. Aortic Root is dilated and measures 4.5cm. There is no pericardial effusion. CONCLUSIONS -------- 1. There is mild concentric left ventricular hypertrophy. 2. Left ventricular systolic function is hyperdynamic with an estimated EF of >70%. 3. The right ventricle is normal in size. 4. The right atrial size is normal. 5. There is moderate aortic stenosis present. 6. Peak/mean gradient across the Aortic Valve is 37.15mmHg / 18.83mmHg. 7. Aortic valve is functionally bicuspid and is mildly thickened. 8. Mild mitral annular calcification present. 9. Mild mitral regurgitation is present. 10. Mild tricuspid regurgitation present. 11. There is no pulmonic regurgitation present. 12. Aortic Root is dilated and measures 4.5cm. 13. There is no pericardial effusion. SERVICE VEHICLE OPERATOR: Elizabeth Valero RDCS
== END | disposition home or self-care (01) ==
LOC: RADECHMAIN 11:54
PROVIDERS: ATTEND Family Medicine
DX: I08.1 Rheumatic disorders of both mitral and tricuspid valves (principal)
CPT/HCPCS: 93306

== ENCOUNTER → 2021-11-23 | Outpatient (CLI) | payer MEDICARE ==
--- NOTE | 2021-11-24 10:28 | CA ---
Transthoracic Echo Report Name: Chente Morin Age: 60 Gender: M : 1960 Exam Date: 11/23/2021 14:28 Exam Location: [facility] Ht (in): 68 Wt (lb): 185 Ordering Physician: Kvng Jefferson MD Attending/Referring Phys: Chelsea De Guzman [facility] Supervisor Rice Milling Letitia Fuchs RDCS Procedure CPT: Indications: i35.0 Cardiac Hx: Hx of Aortic Stenosis Technical Quality: Good Contrast 1: Total Dose (mL): Contrast 2: Total Dose (mL): MEASUREMENTS (Male / Female) Normal Values 2D ECHO LV Diastolic Diameter PLAX 4.2 cm 4.2 - 5.9 / 3.9 - 5.3 cm LV Systolic Diameter PLAX 1.9 cm IVS Diastolic Thickness 1.0 cm 0.6 - 1.0 / 0.6 - 0.9 cm LVPW Diastolic Thickness 1.3 cm 0.6 - 1.0 / 0.6 - 0.9 cm LV Relative Wall Thickness 0.6 LVOT Diameter 1.8 cm LA Volume 53.8 cm??? 18 - 58 / 22 - 52 cm??? M-MODE Aortic Root Diameter MM 4.2 cm LA Systolic Diameter MM 2.9 cm LA Ao Ratio MM 0.7 MV E Point Septal Separation 1.2 cm AV Cusp Separation MM 0.8 cm DOPPLER AV Peak Velocity 352.7 cm/s AV Peak Gradient 49.8 mmHg AV Mean Velocity 221.3 cm/s AV Mean Gradient 23.9 mmHg AV Velocity Time Integral 68.4 cm LVOT Peak Velocity 100.2 cm/s LVOT Peak Gradient 4.0 mmHg AV Area Cont Eq pk 0.7 cm??? MV Area PHT 4.6 cm??? MR Peak Velocity 420.2 cm/s MR Peak Gradient 70.6 mmHg Mitral E Point Velocity 122.5 cm/s Mitral A Point Velocity 99.3 cm/s Mitral E to A Ratio 1.2 MV Deceleration Time 164.5 ms MV E' Velocity 7.6 cm/s Mitral E to MV E' Ratio 16.0 PV Peak Velocity 175.8 cm/s PV Peak Gradient 12.4 mmHg FINDINGS Left Ventricle Left ventricular ejection fraction is estimated at 55-60 %. Left ventricular cavity size normal. Left ventricular wall thickness normal. Grade 1 diastolic dysfunction. Right Ventricle The right ventricle is normal in size and function. Right Atrium The right atrium is normal in size. Left Atrium The left atrium is normal in size. Mitral Valve Structurally normal mitral valve without significant stenosis or prolapse. There is moderate mitral regurgitation. Aortic Valve Bicuspid aortic valve. Moderate aortic stenosis with a peak gradient of 52 mmHg and a mean gradient of 24 mmHg. Tricuspid Valve Structurally normal tricuspid valve without significant stenosis. Pulmonary artery systolic pressure is normal. Mild tricuspid regurgitation. Pulmonic Valve Structurally normal pulmonic valve without significant stenosis. There is no pulmonic regurgitation. Pericardium Normal pericardium without effusion. Aorta Dialated Aortic valve measuring 4.2 cm. CONCLUSIONS Normal left ventricular dimension and systolic function Moderate aortic stenosis Moderate mitral regurgitation Previewed by: Dr. Patrick Garcia MD (Electronically Signed) Final Date: 24 November 2021 10:27
== END | disposition home or self-care (01) ==
LOC: RADECHMAIN 14:17
PROVIDERS: ATTEND Family Medicine
DX: I35.0 Nonrheumatic aortic (valve) stenosis (principal)
CPT/HCPCS: 93306

== ENCOUNTER 2022-02-25 11:48 | Day surgery (SDC) | payer MEDICARE ==
[2022-02-23 12:48] VITALS: BMI 28.8
[2022-02-25 13:28] VITALS: TEMP 97
[2022-02-25] MEDS: LACTATED RINGERS 1,000 ML IV SCH ×2 (13:35→13:57)
[2022-02-25] MEDS ORDERED: PROPOFOL 10 MG/ML 20 ML VIAL IV ONE (13:58)
--- NOTE | 2022-02-25 14:17 | P.PCN ---
Date of Procedure: 02/25/22 Procedure(s) Performed: BRIEF HISTORY: Patient is a 61-year-old pleasant white male scheduled for an elective colonoscopy as a part of screening for colon cancer/positive cologuard PROCEDURE PERFORMED: Colonoscopy. PREOPERATIVE DIAGNOSIS: Screening for colon cancer/positive cologuard. IV sedation per Anesthesia. PROCEDURE: After informed consent was obtained, the patient, was brought into the endoscopy unit. IV sedation was administered by Anesthesia under continuous monitoring. Digital rectal examination was normal. Initially the Olympus CF-160 flexible video colonoscope was then inserted in the rectum, gradually advanced into the cecum without any difficulty. Careful examination was performed as the scope was gradually being withdrawn. Ileocecal valve and the appendiceal orifice were visualized and appeared normal. Prep was excellent. Mucosa of the cecum, ascending colon, transverse colon, descending colon, sigmoid colon, and rectum appeared normal. Retroflexion was performed in the rectum and no lesions were seen. The patient tolerated the procedure well. IMPRESSION: Normal-appearing colon from rectum to cecumwith no evidence of colorectal neoplasia . scattered sigmoid diverticulosis. RECOMMENDATIONS: Findings of this examination were discussed with the patient as well as a family. He was advised to have a repeat screening colonoscopy in 10 years..
[2022-02-25 14:21] VITALS: RESP 16
[2022-02-25 14:38] VITALS: BP 154/86; PULSE 68
== END 2022-02-25 14:49 | disposition home or self-care (01) ==
LOC: ORWHC2ENDO 11:48
PROVIDERS: ATTEND Internal Medicine Gastroenterology
DX: Z12.11 Encounter for screening for malignant neoplasm of colon (principal); K57.30 Diverticulosis of large intestine without perforation or abscess without bleeding
CPT/HCPCS: 45378; J2704

== ENCOUNTER → 2022-12-14 | Outpatient (CLI) | payer MEDICARE ==
--- NOTE | 2022-12-15 11:17 | CA ---
Transthoracic Echo Report Name: Chente Morin Age: 61 Gender: M : 1960 Exam Date: 12/14/2022 14:06 Exam Location: [facility] Ht (in): 68 Wt (lb): 185 Ordering Physician: Kvng Jefferson MD Attending/Referring Phys: Li GRIMES Data Review Specialist Francia Benton [facility] Procedure CPT: Indications: Q23.1 CONGENITAL INSUFFICIENCY OF AORTIC VALVE Cardiac Hx: Technical Quality: Fair Contrast 1: Total Dose (mL): Contrast 2: Total Dose (mL): MEASUREMENTS (Male / Female) Normal Values 2D ECHO LV Diastolic Diameter PLAX 4.6 cm 4.2 - 5.9 / 3.9 - 5.3 cm LV Systolic Diameter PLAX 2.8 cm IVS Diastolic Thickness 0.9 cm 0.6 - 1.0 / 0.6 - 0.9 cm LVPW Diastolic Thickness 0.9 cm 0.6 - 1.0 / 0.6 - 0.9 cm LV Relative Wall Thickness 0.4 LVOT Diameter 2.0 cm LA Volume 56.2 cm??? 18 - 58 / 22 - 52 cm??? M-MODE Aortic Root Diameter MM 2.8 cm LA Systolic Diameter MM 4.2 cm LA Ao Ratio MM 1.5 AV Cusp Separation MM 1.1 cm DOPPLER AV Peak Velocity 329.3 cm/s AV Peak Gradient 43.4 mmHg AV Mean Velocity 221.4 cm/s AV Mean Gradient 21.7 mmHg AV Velocity Time Integral 72.0 cm LVOT Peak Velocity 83.3 cm/s LVOT Peak Gradient 2.8 mmHg LVOT Velocity Time Integral 22.8 cm LVOT Stroke Volume 73.3 cm??? LVOT Stroke Volume Index 37.1 ml/m??? LVOT Cardiac Index 2604.5 cm???/min???m??? AV Area Cont Eq vti 1.0 cm??? AV Area Cont Eq pk 0.8 cm??? MV Area PHT 4.8 cm??? Mitral E Point Velocity 95.5 cm/s Mitral A Point Velocity 76.8 cm/s Mitral E to A Ratio 1.2 MV Deceleration Time 157.6 ms LV E' Lateral Velocity 9.8 cm/s Mitral E to LV E' Lateral Ratio 9.8 LV E' Septal Velocity 7.2 cm/s Mitral E to LV E' Septal Ratio 13.3 TR Peak Velocity 273.5 cm/s TR Peak Gradient 29.9 mmHg Right Atrial Pressure 3.0 mmHg Pulmonary Artery Systolic Pressu 32.9 mmHg Right Ventricular Systolic Press 32.9 mmHg FINDINGS Left Ventricle Left ventricular wall thickness normal. Left ventricular cavity size normal. Normal left ventricular systolic function with no obvious regional wall motion abnormalities. Left ventricular ejection fraction is estimated at 55-60%. Right Ventricle Mild right ventricular dilatation. Mild pulmonary hypertension. RVSP estimated at 33 mmHg Right Atrium Normal right atrial size. Left Atrium Normal left atrial size. Mitral Valve Structurally normal mitral valve. Mild mitral regurgitation. Aortic Valve Bicuspid aortic valve. Diffuse thickening of the aortic valve cusps with reduced excursion. Moderate aortic stenosis with a mean gradient of 21 mmHg. Tricuspid Valve Structurally normal tricuspid valve. Mild tricuspid regurgitation. Pulmonic Valve Structurally normal pulmonic valve. No pulmonic regurgitation. Pericardium No pericardial effusion. Aorta Moderate aortic dilatation at the level of the sinuses of valsalva (root). Proximal ascending aorta (tube) normal. Indexed Aortic root lenght 2.1 cm CONCLUSIONS Left ventricular ejection fraction is estimated at 55-60%. No obvious regional wall motion abnormalities. Bicuspid aortic valve, with moderate aortic stenosis, mean gradient 21 mmHg Moderate aortic root dilatation. Normal ascending aorta dimensions No significant difference in aortic root dimensions when compared to echo from November 2021 Previewed by: Dr Mele Calderon (Electronically Signed) Final Date: 15 December 2022 11:16
== END | disposition home or self-care (01) ==
LOC: RADECHMAIN 13:53
PROVIDERS: ATTEND Family Medicine
DX: I08.1 Rheumatic disorders of both mitral and tricuspid valves (principal)
CPT/HCPCS: 93306